=== PATIENT | female | born 1980 | race American Indian/Alaskan Native ===

== ENCOUNTER 2021-05-22 13:33 | Outpatient (CLI) | payer MEDICARE ==
[2021-05-22 14:40] LABS: Hematocrit 34.2 % (30.3-42.9); Hemoglobin 11.4 gm/dl (10.1-14.3); Mean Corpuscular HGB Conc 33 % (30-34); Mean Corpuscular Volume 94 fl (79-97); Platelet Count 558 K/mm3 (140-440); Red Blood Count 3.64 M/mm3 (3.65-5.03); Red Cell Distribution Width 18.5 % (13.2-15.2)
[2021-05-22 15:03] LABS: Albumin 3.9 g/dL (3.9-5); Calcium 9.9 mg/dL (8.4-10.2)
--- NOTE | 2021-05-22 15:28 | XRay Report ---
XR chest routine 2V INDICATION / CLINICAL INFORMATION: F/U ON PNEUMONIA COMPARISON: None available. FINDINGS: SUPPORT DEVICES: None. HEART / MEDIASTINUM: No significant abnormality. LUNGS / PLEURA: Lungs are clear. Costophrenic sulci are sharp. No pneumothorax. ADDITIONAL FINDINGS: No significant additional findings. IMPRESSION: 1. No acute findings. Signer Name: Grady Valdes MD Signed: 05/22/2021 3:24 PM Workstation Name: [id number]
[2021-05-22 16:35] LABS: Basophils # (Auto) 0.1 K/mm3 (0.0-0.1); Basophils % (Auto) 0.8 % (0.0-1.8); Eosinophils # (Auto) 0.1 K/mm3 (0.0-0.4); Eosinophils % (Auto) 0.8 % (0.0-4.3); Lymphocytes # (Auto) 2.6 K/mm3 (1.2-5.4); Lymphocytes % (Auto) 31.3 % (13.4-35.0); Monocytes # (Auto) 0.4 K/mm3 (0.0-0.8); Monocytes % (Auto) 5.1 % (0.0-7.3)
[2021-05-22 19:44] LABS: Chol/HDL Ratio 4.56 %
== END 2021-05-22 13:34 | disposition home or self-care (01) ==
LOC: XRAY 13:33
PROVIDERS: ATTEND Internal Medicine
DX: E78.00 Pure hypercholesterolemia, unspecified (principal); G90.9 Disorder of the autonomic nervous system, unspecified; I82.409 Acute embolism and thrombosis of unspecified deep veins of unspecified lower extremity; E11.9 Type 2 diabetes mellitus without complications; J12.82 Pneumonia due to coronavirus disease 2019; Z86.16 Personal history of COVID-19
CPT/HCPCS: 36415; 71046; 82550; 82728; 83615; 84484; 85379; 86140